=== PATIENT | male | born 1970 | race Caucasian/White ===

== ENCOUNTER → 2022-11-15 | Outpatient (REF) | payer OTHER ==
[2022-11-15 14:41] LABS: BASO % 0.6 % (0.0-1.0); EOS # 0.2 10^3/uL (0.0-0.5); EOS % 2.9 % (0.0-3.0); HEMATOCRIT 46.5 % (42.0-52.0); HEMOGLOBIN 15.3 g/dl (13.5-17.5); LYMPH # 1.9 10^3/uL (1.5-5.0); LYMPH % 36.5 % (24.0-44.0); MEAN CORPUSCULAR HEMOGLOBIN 29.7 pg (27.0-33.0); MEAN CORPUSCULAR HGB CONC 32.9 g/dl (32.0-36.5); MEAN CORPUSCULAR VOLUME 90.1 fl (80.0-96.0); MONO # 0.6 10^3/uL (0.0-0.8); MONO % 12.2 % (2.0-8.0); NEUTROPHILS # 2.4 10^3/uL (1.5-8.5); NEUTROPHILS % 47.4 % (36.0-66.0); PLATELET COUNT, AUTOMATED 264 10^3/uL (150-450); RED BLOOD COUNT 5.16 10^6/uL (4.30-6.10); WHITE BLOOD COUNT 5.1 10^3/uL (4.0-10.0)
[2022-11-15 15:07] LABS: TOTAL 25(OH) VITAMIN D 30.2 NG/ML (20.0-100.0)
[2022-11-15 15:08] LABS: THYROID STIMULATING HORMONE 1.324 uIU/ML (0.55-4.78)
[2022-11-15 15:09] LABS: ALBUMIN 4.2 G/DL (3.2-5.2); ALKALINE PHOSPHATASE 63 U/L (46-116); ALT/SGPT 66 U/L (7.0-40); AST/SGOT 35 U/L (<34); BILIRUBIN,TOTAL 0.6 MG/DL (0.3-1.2); BLOOD UREA NITROGEN 16 MG/DL (9-23); CALCIUM LEVEL 9.6 MG/DL (8.5-10.1); CARBON DIOXIDE LEVEL 25 MMOL/L (20-31); CHLORIDE LEVEL 102 MMOL/L (98-107); CHOLESTEROL LEVEL 260 MG/DL (<200); CREATININE FOR GFR 1.08 MG/DL (0.70-1.30); GLOMERULAR FILTRATION RATE > 60.0 (>56); GLUCOSE, FASTING 91 MG/DL (60-100); HDL CHOLESTEROL 78.6 MG/DL (>40); HEMOGLOBIN A1c 5.3 % (4.0-6.0); LDL CHOLESTEROL 158.6 MG/DL (<100); NON-HDL-C 181 MG/DL; POTASSIUM SERUM 4.8 MMOL/L (3.5-5.1); SODIUM LEVEL 138 MMOL/L (136-145); TRIGLYCERIDES LEVEL 114 MG/DL (<150)
[2022-11-15 15:10] LABS: FREE T4 1.22 NG/DL (0.89-1.76)
== END ==
LOC: M LAB REF 11:58
PROVIDERS: ATTEND Nurse Practitioner Family
DX: Z13.228 Encounter for screening for other metabolic disorders (principal)

== ENCOUNTER → 2022-12-14 | Outpatient (REF) | payer OTHER ==
[2022-12-14 18:24] LABS: ALBUMIN 4.5 G/DL (3.2-5.2); BILIRUBIN,DIRECT 0.1 MG/DL (<0.4); BILIRUBIN,TOTAL 0.5 MG/DL (0.3-1.2); TOTAL PROTEIN 7.3 G/DL (5.7-8.2)
== END ==
LOC: M LAB REF 16:32
PROVIDERS: ATTEND Nurse Practitioner Family
DX: R89.9 Unspecified abnormal finding in specimens from other organs, systems and tissues (principal); R35.1 Nocturia

== ENCOUNTER → 2023-02-25 | Outpatient (REF) | payer OTHER ==
[2023-02-25 20:33] LABS: ALBUMIN 4.3 G/DL (3.2-5.2); ALKALINE PHOSPHATASE 63 U/L (46-116); ALT/SGPT 138 U/L (7.0-40); AST/SGOT 48 U/L (<34); BILIRUBIN,DIRECT 0.3 MG/DL (<0.4); BILIRUBIN,TOTAL 0.8 MG/DL (0.3-1.2); TOTAL PROTEIN 6.9 G/DL (5.7-8.2)
[2023-02-25 20:35] LABS: HEPATITIS B SURFACE ANTIBODY NEGATIVE (POSITIVE)
[2023-02-25 20:36] LABS: FERRITIN 220.2 NG/ML (10.5-307.3)
[2023-02-25 20:47] LABS: HEPATITIS B SURFACE ANTIGEN NEGATIVE (NEGATIVE)
[2023-02-25 21:09] LABS: HEPATITIS B CORE ANTIBODY IGM NEGATIVE (NEGATIVE)
== END ==
LOC: M LAB REF 17:21
PROVIDERS: ATTEND Nurse Practitioner Family
DX: R74.01 Elevation of levels of liver transaminase levels (principal); R89.9 Unspecified abnormal finding in specimens from other organs, systems and tissues

== ENCOUNTER → 2023-04-01 | Outpatient (CLI) | payer OTHER | LOC: M RAD 08:06 | PROVIDERS: ATTEND Nurse Practitioner Family | DX: R74.01 Elevation of levels of liver transaminase levels (principal) ==

== ENCOUNTER 2023-04-26 09:13 | Day surgery (SDC) | payer OTHER ==
[~2023-04-26] VITALS: Ht 172.7 cm; Wt 82.2 kg
[~2023-04-26 09:13] MED LIST: CETI10CH PO; LOSA25TA13 PO; NS 1,000 ML IV ONE; ROSU10TA6 PO
[2023-04-26] MEDS ORDERED: fentaNYL 100 MCG/2 ML INJECTION As Ordered ONE (10:27)
[2023-04-26] MEDS ORDERED: LIDOCAINE 2% MDV 20ML VIAL As Ordered ONE (10:27)
[2023-04-26] MEDS ORDERED: propofoL 200 MG/20 ML VIAL As Ordered ONE (10:27)
[2023-04-26] MEDS ORDERED: SIMETHICONE 40MG/0.6ML DROPS 30ML As Ordered ONE (10:51)
[2023-04-26 11:15] VITALS: BP 124/65
== END 2023-04-26 11:35 | disposition home or self-care (01) ==
LOC: M OPP 09:13
PROVIDERS: ATTEND Surgery
DX: Z12.11 Encounter for screening for malignant neoplasm of colon (principal); D12.4 Benign neoplasm of descending colon; K64.8 Other hemorrhoids; I10 Essential (primary) hypertension; E78.5 Hyperlipidemia, unspecified; Z88.8 Allergy status to other drugs, medicaments and biological substances; Z79.899 Other long term (current) drug therapy
CPT/HCPCS: 45385; 88305; J3010

== ENCOUNTER → 2023-05-06 | Outpatient (REF) | payer OTHER ==
[~2023-05-06] MED LIST changes: -NS 1,000 ML IV ONE
[2023-05-06 18:14] LABS: ALBUMIN 4.3 G/DL (3.2-5.2); BILIRUBIN,DIRECT 0.2 MG/DL (<0.4); BILIRUBIN,TOTAL 0.5 MG/DL (0.3-1.2); PERCENT SATURATION 69.9 % (19.7-50.0); TOTAL PROTEIN 6.5 G/DL (5.7-8.2)
== END ==
LOC: M LAB REF 16:06
PROVIDERS: ATTEND Nurse Practitioner Family
DX: R74.01 Elevation of levels of liver transaminase levels (principal)

== ENCOUNTER → 2023-08-07 | Outpatient (CLI) | payer OTHER | LOC: M RAD 17:49 | PROVIDERS: ATTEND Physician Assistant | DX: N20.0 Calculus of kidney (principal) ==

== ENCOUNTER → 2023-08-08 | Outpatient (CLI) | payer OTHER | LOC: M RAD 13:59 | PROVIDERS: ATTEND Nurse Practitioner Family | DX: Z13.29 Encounter for screening for other suspected endocrine disorder (principal) ==

== ENCOUNTER → 2023-09-21 | Outpatient (CLI) | payer OTHER ==
[~2023-09-21] MED LIST changes: +VITMTA PO
[2023-09-21 10:02] LABS: APPEARANCE, URINE CLEAR (CLEAR); BACTERIA, URINE AUTO NEGATIVE (NEGATIVE); BILIRUBIN, URINE AUTO NEGATIVE (NEGATIVE); BLOOD, URINE BLOOD NEGATIVE (NEGATIVE); COLOR, URINE YELLOW (YELLOW); GLUCOSE, URINE (UA) AUTO NEGATIVE (NEGATIVE); HEMATOCRIT 45.1 % (42.0-52.0); HEMOGLOBIN 15.2 g/dl (13.5-17.5); KETONE, URINE AUTO NEGATIVE (NEGATIVE); LEUKOCYTE ESTERASE, URINE AUTO NEGATIVE (NEGATIVE); MEAN CORPUSCULAR HEMOGLOBIN 29.2 pg (27.0-33.0); MEAN CORPUSCULAR HGB CONC 33.7 g/dl (32.0-36.5); MEAN CORPUSCULAR VOLUME 86.6 fl (80.0-96.0); MUCUS, URINE SMALL (NEGATIVE); NITRITE, URINE AUTO NEGATIVE (NEGATIVE); PLATELET COUNT, AUTOMATED 242 10^3/uL (150-450); PROTEIN, URINE AUTO NEGATIVE (NEGATIVE); RBC, URINE AUTO 0 /HPF (0-3); RED BLOOD COUNT 5.21 10^6/uL (4.30-6.10); SQUAMOUS EPITHELIAL CELL UR AU 0 /HPF (0-6); UROBILINOGEN, URINE AUTO 0.2 mg/dL (0.0-2.0); WBC, URINE AUTO 3 /HPF (0-3); WHITE BLOOD COUNT 6.5 10^3/uL (4.0-10.0)
[2023-09-21 10:25] LABS: BLOOD UREA NITROGEN 15 MG/DL (9-23); CALCIUM LEVEL 9.4 MG/DL (8.5-10.1); CARBON DIOXIDE LEVEL 31 MMOL/L (20-31); CHLORIDE LEVEL 104 MMOL/L (98-107); GLOMERULAR FILTRATION RATE > 60.0 (>56); GLUCOSE, FASTING 96 MG/DL (60-100); POTASSIUM SERUM 4.2 MMOL/L (3.5-5.1); SODIUM LEVEL 142 MMOL/L (136-145)
== END ==
LOC: M RAD 08:45
PROVIDERS: ATTEND Physician Assistant
DX: Z01.818 Encounter for other preprocedural examination (principal)

== ENCOUNTER 2023-09-26 08:51 | Day surgery (SDC) | payer OTHER ==
[~2023-09-26] VITALS: Ht 170.2 cm; Wt 84.9 kg
[~2023-09-26 08:51] MED LIST changes: +LIDOCAINE 2% 100MG/5ML SDV (FOR ANES.) As Ordered ONE; +LR 1,000 ML IV SCH; +ONDANSETRON 4MG 2ML VIAL As Ordered ONE; +ceFAZolin SOD 2 GM in IV 1 EA IV ONE; +propofoL 200 MG/20 ML VIAL As Ordered ONE
[2023-09-26] MEDS ORDERED: fentaNYL 100 MCG/2 ML INJECTION As Ordered ONE (09:50)
[2023-09-26] MEDS ORDERED: OXYC1TAB23 PO (10:19)
[2023-09-26] MEDS ORDERED: FLOM0.4C39 PO (10:19)
[2023-09-26] MEDS ORDERED: ACETAMINOPHEN 1000MG 100ML IV BAG As Ordered ONE (10:31)
[2023-09-26 11:25] VITALS: BP 125/72; TEMP 97.7; O2SAT 98
== END 2023-09-26 11:41 | disposition home or self-care (01) ==
LOC: M SDC 08:51
PROVIDERS: ATTEND Urology
DX: N20.0 Calculus of kidney (principal); I10 Essential (primary) hypertension; E78.00 Pure hypercholesterolemia, unspecified; K21.9 Gastro-esophageal reflux disease without esophagitis; Z87.442 Personal history of urinary calculi; J30.89 Other allergic rhinitis; Z79.899 Other long term (current) drug therapy
CPT/HCPCS: 50590; 74018; J0131; J0690; J1100; J2405; J3010

== ENCOUNTER 2023-10-05 12:35 | Inpatient (IN) | payer OTHER ==
[~2023-10-05] VITALS: Ht 170.2 cm; Wt 81.0 kg
[~2023-10-05 12:35] MED LIST changes: +FLOM0.4C39 PO; -LIDOCAINE 2% 100MG/5ML SDV (FOR ANES.) As Ordered ONE; -LR 1,000 ML IV SCH; -ONDANSETRON 4MG 2ML VIAL As Ordered ONE; +OXYC1TAB23 PO; -ceFAZolin SOD 2 GM in IV 1 EA IV ONE; -propofoL 200 MG/20 ML VIAL As Ordered ONE
[2023-10-05] MEDS ORDERED: NS 1,000 ML IV ONE (13:30)
[2023-10-05 14:07] LABS: BASO # 0.1 10^3/uL (0.0-0.2); EOS # 0.1 10^3/uL (0.0-0.5); HEMATOCRIT 45.6 % (42.0-52.0); HEMOGLOBIN 15.4 g/dl (13.5-17.5); LYMPH # 1.1 10^3/uL (1.5-5.0); LYMPH % 22.9 % (24.0-44.0); MEAN CORPUSCULAR HEMOGLOBIN 29.3 pg (27.0-33.0); MEAN CORPUSCULAR HGB CONC 33.8 g/dl (32.0-36.5); MEAN CORPUSCULAR VOLUME 86.9 fl (80.0-96.0); MONO # 0.6 10^3/uL (0.0-0.8); NEUTROPHILS % 61.9 % (36.0-66.0); PLATELET COUNT, AUTOMATED 310 10^3/uL (150-450); RED BLOOD COUNT 5.25 10^6/uL (4.30-6.10); WHITE BLOOD COUNT 4.9 10^3/uL (4.0-10.0)
[2023-10-05 14:19] LABS: INR 0.91; PARTIAL THROMBOPLASTIN TIME 23.8 SECONDS (24.8-34.2)
[2023-10-05 14:53] LABS: MONO SCRN NEGATIVE (NEGATIVE)
[2023-10-05 14:54] LABS: LIPASE 236 U/L (12-53)
[2023-10-05 14:56] LABS: ALBUMIN 4.4 G/DL (3.2-5.2); ALKALINE PHOSPHATASE 457 U/L (46-116); ALT/SGPT 884 U/L (7.0-40); AST/SGOT 464 U/L (<34); BILIRUBIN,DIRECT 7.8 MG/DL (<0.4)
[2023-10-05 15:19] LABS: HEPATITIS B CORE ANTIBODY IGM NEGATIVE (NEGATIVE); HEPATITIS C VIRUS ABY INDEX 0.05 INDEX (<0.8)
[2023-10-05 15:20] LABS: BILIRUBIN,TOTAL 10.9 MG/DL (0.3-1.2)
[2023-10-05 15:54] LABS: BLOOD UREA NITROGEN 14 MG/DL (9-23); CALCIUM LEVEL 10.4 MG/DL (8.5-10.1); CARBON DIOXIDE LEVEL 25 MMOL/L (20-31); CHLORIDE LEVEL 102 MMOL/L (98-107); CREATININE FOR GFR 1.09 MG/DL (0.70-1.30); GLOMERULAR FILTRATION RATE > 60.0 (>56); GLUCOSE, FASTING 103 MG/DL (60-100); POTASSIUM SERUM 4.2 MMOL/L (3.5-5.1); SODIUM LEVEL 140 MMOL/L (136-145)
[2023-10-05] MEDS ORDERED: PROHANCE 279.3MG/ML 5ML VIAL As Ordered ONE (17:21)
[2023-10-05] MEDS ORDERED: PROHANCE 279.3MG/ML 15ML VIAL As Ordered ONE (17:21)
[2023-10-05] MEDS ORDERED: HYDR-643 PO (19:18)
[2023-10-05] MEDS ORDERED: TAMS1CAP17 PO (19:18)
[2023-10-05] MEDS ORDERED: ASPI81TA26 PO (19:18)
[2023-10-05] MEDS ORDERED: HOME MED LIST COMPLETE! XX SCH (19:20)
[2023-10-05 23:45] VITALS: BP 138/82; TEMP 98.1; O2SAT 98
[2023-10-06] VITALS (8 sets, daily range): BP systolic 109–138; BP diastolic 73–80; TEMP 97.9–98.2; O2SAT 96–100
[2023-10-06] MEDS: LR 1,000 ML IV SCH ×4 (06:30→21:07)
[2023-10-06 07:17] LABS: HEMATOCRIT 41.4 % (42.0-52.0); MEAN CORPUSCULAR HEMOGLOBIN 29.5 pg (27.0-33.0); MEAN CORPUSCULAR HGB CONC 33.8 g/dl (32.0-36.5); MEAN CORPUSCULAR VOLUME 87.3 fl (80.0-96.0); PLATELET COUNT, AUTOMATED 290 10^3/uL (150-450); RED BLOOD COUNT 4.74 10^6/uL (4.30-6.10); WHITE BLOOD COUNT 5.7 10^3/uL (4.0-10.0)
[2023-10-06 07:50] LABS: ALBUMIN 3.5 G/DL (3.2-5.2); ALKALINE PHOSPHATASE 378 U/L (46-116); ALT/SGPT 826 U/L (7.0-40); AST/SGOT 452 U/L (<34); BILIRUBIN,TOTAL 10.2 MG/DL (0.3-1.2); BLOOD UREA NITROGEN 14 MG/DL (9-23); CALCIUM LEVEL 9.5 MG/DL (8.5-10.1); CARBON DIOXIDE LEVEL 25 MMOL/L (20-31); CHLORIDE LEVEL 102 MMOL/L (98-107); CREATININE FOR GFR 1.03 MG/DL (0.70-1.30); GLOMERULAR FILTRATION RATE > 60.0 (>56); GLUCOSE, FASTING 78 MG/DL (60-100); MAGNESIUM LEVEL 2.2 MG/DL (1.8-2.4); POTASSIUM SERUM 4.6 MMOL/L (3.5-5.1); SODIUM LEVEL 138 MMOL/L (136-145); TOTAL PROTEIN 6.6 G/DL (5.7-8.2)
[2023-10-06] MEDS ORDERED: INFLUENZA QUADRIVALENT PF VACCINE 0.5ML SYRINGE IM.IMMUN ONE (10:00)
[2023-10-06] MEDS ORDERED: ISOVUE-300 61% 100ML VIAL As Ordered ONE (16:18)
[2023-10-06] MEDS ORDERED: fentaNYL 100 MCG/2 ML INJECTION As Ordered ONE (17:13)
[2023-10-06] MEDS ORDERED: propofoL 200 MG/20 ML VIAL As Ordered ONE ×2 (17:13→17:50)
[2023-10-06] MEDS ORDERED: ONDANSETRON 4MG 2ML VIAL As Ordered ONE (17:13)
[2023-10-06] MEDS ORDERED: ROCURONIUM BROMIDE 50MG/5ML VIAL As Ordered ONE (17:13)
[2023-10-06] MEDS ORDERED: MIDAZOLAM INJ 2MG/2ML VIAL As Ordered ONE (17:13)
[2023-10-06] MEDS ORDERED: LIDOCAINE 2% 100MG/5ML SDV (FOR ANES.) As Ordered ONE (17:13)
[2023-10-06] MEDS ORDERED: GLUCAGON INJ 1MG VIAL As Ordered ONE (17:13)
[2023-10-06] MEDS ORDERED: SUGAMMADEX SODIUM 500 MG/5 ML VIAL (BRIDION) As Ordered ONE (18:07)
[2023-10-06] MEDS ORDERED: oxyCODONE 5MG TAB PO PRN (18:15)
[2023-10-06] MEDS ORDERED: ONDANSETRON 4MG 2ML VIAL IV PRN (18:15)
[2023-10-06] MEDS ORDERED: fentaNYL 100 MCG/2 ML INJECTION IV PRN (18:15)
[2023-10-06] MEDS ORDERED: PIPERACILLIN/TAZOBACTAM SOD 3.375 GM in D5W MINI-BAG PLUS 50 ML IV SCH (20:00)
[2023-10-07] MEDS ORDERED: LOSARTAN 25 MG TAB PO SCH (09:00)
[2023-10-07] MEDS ORDERED: TAMSULOSIN 0.4 MG CAP PO SCH (09:00)
[2023-10-07] MEDS ORDERED: ASPIRIN 81MG ENTERIC TABLET PO SCH (09:00)
== END 2023-10-07 00:53 | disposition short-term general hospital (02) ==
LOC: M ED 12:35 → M ED INP 22:24 → M MS5PR 23:38
PROVIDERS: ADMIT Internal Medicine; ATTEND Internal Medicine
PROC: 0F7D8ZZ Dilation of Pancreatic Duct, Via Natural or Artificial Opening Endoscopic (ICD-10-PCS; principal; 2023-10-06 16:42)
DX: R17 Unspecified jaundice (principal); K83.1 Obstruction of bile duct; K86.2 Cyst of pancreas; K86.89 Other specified diseases of pancreas; K83.8 Other specified diseases of biliary tract; I10 Essential (primary) hypertension; N20.0 Calculus of kidney; F41.9 Anxiety disorder, unspecified; F32.A Depression, unspecified; R74.01 Elevation of levels of liver transaminase levels; K82.4 Cholesterolosis of gallbladder; R93.2 Abnormal findings on diagnostic imaging of liver and biliary tract; Z79.82 Long term (current) use of aspirin; Z79.899 Other long term (current) drug therapy

== ENCOUNTER → 2023-10-15 | Outpatient (REF) | payer OTHER ==
[~2023-10-15] MED LIST changes: +ASPI81TA26 PO; +HYDR-643 PO; +TAMS1CAP17 PO
== END ==
LOC: M SMT 17:05
PROVIDERS: ATTEND Physician Assistant
DX: Z48.816 Encounter for surgical aftercare following surgery on the genitourinary system (principal)

== ENCOUNTER → 2023-10-16 | Outpatient (CLI) | payer OTHER | LOC: M PLAIMG 13:32 | PROVIDERS: ATTEND Surgery Surgical Oncology | DX: K83.1 Obstruction of bile duct (principal) ==

== ENCOUNTER → 2023-10-16 | Outpatient (CLI) | payer OTHER | LOC: M PLAIMG 13:37 | PROVIDERS: ATTEND Otolaryngology | DX: D44.0 Neoplasm of uncertain behavior of thyroid gland (principal) ==

== ENCOUNTER → 2023-10-18 | Outpatient (CLI) | payer OTHER ==
[2023-10-18 10:48] LABS: FREE T4 1.15 NG/DL (0.89-1.76); THYROID STIMULATING HORMONE 0.886 uIU/ML (0.55-4.78)
== END ==
LOC: M LAB 09:42
PROVIDERS: ATTEND Otolaryngology
DX: D44.0 Neoplasm of uncertain behavior of thyroid gland (principal)

== ENCOUNTER → 2023-10-21 | Outpatient (CLI) | payer OTHER ==
[2023-10-21 13:59] LABS: BASO # 0.1 10^3/uL (0.0-0.2); BASO % 1.3 % (0.0-1.0); EOS # 0.1 10^3/uL (0.0-0.5); EOS % 1.3 % (0.0-3.0); HEMATOCRIT 44.6 % (42.0-52.0); LYMPH # 1.4 10^3/uL (1.5-5.0); LYMPH % 25.8 % (24.0-44.0); MEAN CORPUSCULAR HEMOGLOBIN 29.4 pg (27.0-33.0); MEAN CORPUSCULAR HGB CONC 33.6 g/dl (32.0-36.5); MEAN CORPUSCULAR VOLUME 87.5 fl (80.0-96.0); MONO # 0.5 10^3/uL (0.0-0.8); MONO % 9.6 % (2.0-8.0); NEUTROPHILS # 3.4 10^3/uL (1.5-8.5); NEUTROPHILS % 61.8 % (36.0-66.0); PLATELET COUNT, AUTOMATED 352 10^3/uL (150-450); WHITE BLOOD COUNT 5.5 10^3/uL (4.0-10.0)
[2023-10-21 14:10] LABS: INR 1.02; PROTHROMBIN TIME 13.1 SECONDS (12.5-14.5)
[2023-10-21 14:11] LABS: PARTIAL THROMBOPLASTIN TIME 21.3 SECONDS (24.8-34.2)
[2023-10-21 14:17] LABS: HEMOGLOBIN A1c 5.2 % (4.0-6.0)
[2023-10-21 14:23] LABS: ALKALINE PHOSPHATASE 162 U/L (46-116); ALT/SGPT 177 U/L (7.0-40); AST/SGOT 46 U/L (<34); BILIRUBIN,TOTAL 1.9 MG/DL (0.3-1.2); BLOOD UREA NITROGEN 14 MG/DL (9-23); CALCIUM LEVEL 9.7 MG/DL (8.5-10.1); CARBON DIOXIDE LEVEL 29 MMOL/L (20-31); CHLORIDE LEVEL 102 MMOL/L (98-107); CREATININE FOR GFR 1.06 MG/DL (0.70-1.30); GLOMERULAR FILTRATION RATE > 60.0 (>56); GLUCOSE, FASTING 93 MG/DL (60-100); POTASSIUM SERUM 4.7 MMOL/L (3.5-5.1); SODIUM LEVEL 141 MMOL/L (136-145); TOTAL PROTEIN 7.3 G/DL (5.7-8.2)
[2023-10-21 14:27] LABS: CARCINOEMBRYONIC ANTIGEN < 2.0 NG/ML (<2.5)
[2023-10-21 14:43] LABS: CA19-9 TUMOR MARKER,CARBOHYDRA 21.9 U/ML (<35.0)
== END ==
LOC: M LAB 13:13
PROVIDERS: ATTEND Surgery Surgical Oncology
DX: K83.1 Obstruction of bile duct (principal)

== ENCOUNTER → 2023-10-21 | Outpatient (CLI) | payer OTHER | LOC: M PLAIMG 11:46 | PROVIDERS: ATTEND Surgery Surgical Oncology | DX: K83.1 Obstruction of bile duct (principal) ==

== ENCOUNTER → 2023-11-05 | Outpatient (CLI) | payer OTHER ==
[~2023-11-05] MED LIST changes: +CYCL-707 PO; +ECOT81TA5 PO; +GNPTAB35 PO; +LEXA1TAB PO; +LIDOCAINE 1% MDV 20ML VIAL As Ordered ONE; +LORA1TAB23 PO
[2023-11-05 13:51] VITALS: TEMP 97.9
[2023-11-05 15:04] VITALS: BP 154/91; O2SAT 95
== END ==
LOC: M IRPRO 13:34
PROVIDERS: ATTEND Otolaryngology
DX: D44.0 Neoplasm of uncertain behavior of thyroid gland (principal)

== ENCOUNTER → 2023-12-09 | Outpatient (CLI) | payer OTHER ==
[~2023-12-09] MED LIST changes: -LIDOCAINE 1% MDV 20ML VIAL As Ordered ONE; +LOMO2.5T PO; +ONDA-84 PO; +PROC10TA5 PO
== END ==
LOC: M ONCR 09:03
PROVIDERS: ATTEND General Practice
DX: C78.7 Secondary malignant neoplasm of liver and intrahepatic bile duct (principal); C25.0 Malignant neoplasm of head of pancreas; Z71.2 Person consulting for explanation of examination or test findings; Z79.82 Long term (current) use of aspirin; Z79.899 Other long term (current) drug therapy; Z92.21 Personal history of antineoplastic chemotherapy

== ENCOUNTER 2023-12-17 10:31 | Outpatient (RCR) | payer OTHER ==
[2023-12-24] MEDS ORDERED: THERTAB52 PO (09:50)
[2023-12-24] MEDS ORDERED: ONDA-84 PO (09:50)
[2023-12-24] MEDS ORDERED: PROC10TA5 PO (09:50)
[2023-12-24] MEDS ORDERED: TRAZ-252 PO (10:10)
== END 2023-12-25 ==
LOC: M ONCR 10:31
PROVIDERS: ATTEND General Practice
DX: Z51.0 Encounter for antineoplastic radiation therapy (principal); C78.7 Secondary malignant neoplasm of liver and intrahepatic bile duct; C25.9 Malignant neoplasm of pancreas, unspecified

== ENCOUNTER 2024-01-10 10:41 | Outpatient (RCR) | payer OTHER ==
[~2024-01-10 10:41] MED LIST changes: +THERTAB52 PO; +TRAZ-252 PO
== END 2024-01-23 ==
LOC: M ONCR 10:41
PROVIDERS: ATTEND General Practice
DX: Z51.0 Encounter for antineoplastic radiation therapy (principal); C25.0 Malignant neoplasm of head of pancreas

== ENCOUNTER → 2024-02-17 | Outpatient (CLI) | payer OTHER | LOC: M PLARAD 08:59 | PROVIDERS: ATTEND Specialist | DX: C25.8 Malignant neoplasm of overlapping sites of pancreas (principal) | CPT/HCPCS: 78815; A9552 ==

== ENCOUNTER → 2024-04-08 | Outpatient (CLI) | payer OTHER ==
[~2024-04-08] MED LIST changes: +ANAS0.12 PO; +GASTROGRAFIN SOLUTION 30ML ONE; +ISOVUE-370 76% 100ML VIAL ONE; -ROSU10TA6 PO; +ROSU10TA61 PO
== END ==
LOC: M PLAIMG 11:24
PROVIDERS: ATTEND General Practice
DX: C25.0 Malignant neoplasm of head of pancreas (principal); C78.7 Secondary malignant neoplasm of liver and intrahepatic bile duct

== ENCOUNTER → 2024-04-27 | Outpatient (CLI) | payer OTHER ==
[~2024-04-27] MED LIST changes: -GASTROGRAFIN SOLUTION 30ML ONE; -ISOVUE-370 76% 100ML VIAL ONE
== END ==
LOC: M RAD 11:01
PROVIDERS: ATTEND Otolaryngology
DX: E04.2 Nontoxic multinodular goiter (principal)

== ENCOUNTER → 2024-05-15 | Outpatient (CLI) | payer OTHER ==
[~2024-05-15] MED LIST changes: +POTA-141 PO
== END ==
LOC: M ONCR 11:08
PROVIDERS: ATTEND General Practice
DX: C78.7 Secondary malignant neoplasm of liver and intrahepatic bile duct (principal); C25.0 Malignant neoplasm of head of pancreas; Z87.442 Personal history of urinary calculi; Z92.21 Personal history of antineoplastic chemotherapy; Z71.2 Person consulting for explanation of examination or test findings; J30.89 Other allergic rhinitis; Z79.899 Other long term (current) drug therapy; Z79.82 Long term (current) use of aspirin

== ENCOUNTER → 2024-07-29 | Outpatient (CLI) | payer OTHER ==
[~2024-07-29] MED LIST changes: +GASTROGRAFIN SOLUTION 30ML As Ordered ONE; +ISOVUE-370 76% 100ML VIAL As Ordered ONE; +POTA-150 PO
== END ==
LOC: M RAD 15:16
PROVIDERS: ATTEND Specialist
DX: C25.9 Malignant neoplasm of pancreas, unspecified (principal)
CPT/HCPCS: 71260; 74177; Q9963; Q9967

== ENCOUNTER → 2024-08-19 | Outpatient (CLI) | payer OTHER ==
[~2024-08-19] MED LIST changes: -GASTROGRAFIN SOLUTION 30ML As Ordered ONE; -ISOVUE-370 76% 100ML VIAL As Ordered ONE
== END ==
LOC: M ONCR 11:02
PROVIDERS: ATTEND General Practice
DX: C78.7 Secondary malignant neoplasm of liver and intrahepatic bile duct (principal); C25.0 Malignant neoplasm of head of pancreas; Z71.2 Person consulting for explanation of examination or test findings; Z92.3 Personal history of irradiation; Z92.21 Personal history of antineoplastic chemotherapy; J30.89 Other allergic rhinitis; Z79.82 Long term (current) use of aspirin; Z79.899 Other long term (current) drug therapy

== ENCOUNTER → 2024-10-28 | Outpatient (CLI) | payer OTHER | LOC: M RAD 11:04 | PROVIDERS: ATTEND Otolaryngology | DX: E04.1 Nontoxic single thyroid nodule (principal) ==

== ENCOUNTER → 2025-02-16 | Outpatient (CLI) | payer OTHER ==
[~2025-02-16] MED LIST changes: +MUPI2OI
== END ==
LOC: M ONCR 11:00
PROVIDERS: ATTEND General Practice
DX: C78.7 Secondary malignant neoplasm of liver and intrahepatic bile duct (principal); C25.0 Malignant neoplasm of head of pancreas; R14.0 Abdominal distension (gaseous); Z92.3 Personal history of irradiation; Z92.21 Personal history of antineoplastic chemotherapy; J30.89 Other allergic rhinitis; Z79.82 Long term (current) use of aspirin; Z79.899 Other long term (current) drug therapy

== ENCOUNTER → 2025-03-10 | Outpatient (CLI) | payer OTHER ==
[~2025-03-10] MED LIST changes: +ANAS0.12 SL; +DICY-61 PO; +ISOVUE-370 76% 100ML VIAL As Ordered ONE
== END ==
LOC: M RAD 07:38
PROVIDERS: ATTEND Specialist
DX: C25.9 Malignant neoplasm of pancreas, unspecified (principal)
CPT/HCPCS: 74177; J1642; Q9967

== ENCOUNTER 2025-03-15 18:43 | Emergency (ER) | payer OTHER ==
[~2025-03-15] VITALS: Ht 172.7 cm; Wt 84.5 kg
[~2025-03-15 18:43] MED LIST changes: -ISOVUE-370 76% 100ML VIAL As Ordered ONE
[2025-03-15 19:39] LABS: BASO % 0.7 % (0.0-1.0); EOS # 0.2 10^3/uL (0.0-0.5); EOS % 2.8 % (0.0-3.0); HEMATOCRIT 37.9 % (42.0-52.0); HEMOGLOBIN 12.8 g/dl (13.5-17.5); LYMPH # 1.6 10^3/uL (1.5-5.0); LYMPH % 30.2 % (24.0-44.0); MEAN CORPUSCULAR HEMOGLOBIN 30.3 pg (27.0-33.0); MEAN CORPUSCULAR HGB CONC 33.8 g/dl (32.0-36.5); MEAN CORPUSCULAR VOLUME 89.8 fl (80.0-96.0); MONO # 0.7 10^3/uL (0.0-0.8); MONO % 13.7 % (2.0-8.0); NEUTROPHILS # 2.8 10^3/uL (1.5-8.5); NEUTROPHILS % 52.2 % (36.0-66.0); PLATELET COUNT, AUTOMATED 274 10^3/uL (150-450); RED BLOOD COUNT 4.22 10^6/uL (4.30-6.10); WHITE BLOOD COUNT 5.4 10^3/uL (4.0-10.0)
[2025-03-15 19:58] LABS: LIPASE 52 U/L (12-53)
[2025-03-15 19:59] LABS: INR 0.86
[2025-03-15 20:02] LABS: ALBUMIN 3.5 G/DL (3.2-5.2); ALKALINE PHOSPHATASE 255 U/L (40-129); ALT/SGPT 111 U/L (7.0-40); AST/SGOT 82 U/L (<34); BILIRUBIN,DIRECT 4.5 MG/DL (<0.4); BILIRUBIN,TOTAL 6.5 MG/DL (0.3-1.2); BLOOD UREA NITROGEN 15 MG/DL (9-23); CALCIUM LEVEL 9.7 MG/DL (8.5-10.1); CARBON DIOXIDE LEVEL 26 MMOL/L (20-31); CHLORIDE LEVEL 101 MMOL/L (98-107); CREATININE FOR GFR 0.91 MG/DL (0.70-1.30); GLOMERULAR FILTRATION RATE > 90.0 (>56); GLUCOSE, FASTING 85 MG/DL (60-100); POTASSIUM SERUM 3.8 MMOL/L (3.5-5.1); SODIUM LEVEL 136 MMOL/L (136-145)
[2025-03-15 20:45] LABS: KETONE, URINE AUTO RFX NEGATIVE (NEGATIVE); LEUKOCYTE ESTERASE UR AUTO RFX NEGATIVE (NEGATIVE); NITRITE, URINE AUTO RFX NEGATIVE (NEGATIVE); RBC, URINE AUTO RFX 0 /HPF (0-3); SQUAM EPITHELIAL CELL UR AURFX 0 /HPF (0-6); WBC, URINE AUTO RFX 0 /HPF (0-3)
[2025-03-15 21:11] VITALS: BP 124/66; TEMP 98.3; O2SAT 99
[2025-03-16] MEDS ORDERED: GNPTAB35 PO (17:12)
== END 2025-03-15 21:19 | disposition home or self-care (01) ==
LOC: M ED 18:43
DX: K80.20 Calculus of gallbladder without cholecystitis without obstruction (principal); R10.9 Unspecified abdominal pain; I10 Essential (primary) hypertension; Z91.09 Other allergy status, other than to drugs and biological substances; Z79.1 Long term (current) use of non-steroidal anti-inflammatories (NSAID); Z79.899 Other long term (current) drug therapy

== ENCOUNTER 2025-03-15 22:03 | Emergency (ER) | payer OTHER ==
[~2025-03-15 22:03] MED LIST changes: -FLOM0.4C39 PO; +TAMS-18 PO
[2025-03-15 22:05] VITALS: BP 153/91; TEMP 97.8; O2SAT 98
[2025-03-16] MEDS ORDERED: GNPTAB35 PO (17:12)
[2025-03-25] MEDS ORDERED: OMEP-173 (14:37)
== END 2025-03-15 22:22 | disposition left against medical advice (07) ==
LOC: M ED 22:03
DX: Z53.21 Procedure and treatment not carried out due to patient leaving prior to being seen by health care provider (principal)

== ENCOUNTER 2025-03-16 13:54 | Emergency (ER) | payer OTHER ==
[~2025-03-16] VITALS: Ht 170.2 cm; Wt 83.3 kg
[2025-03-16 15:31] LABS: BASO % 0.6 % (0.0-1.0); EOS # 0.1 10^3/uL (0.0-0.5); EOS % 2.2 % (0.0-3.0); HEMATOCRIT 37.9 % (42.0-52.0); HEMOGLOBIN 12.7 g/dl (13.5-17.5); LYMPH # 1.3 10^3/uL (1.5-5.0); LYMPH % 24.8 % (24.0-44.0); MEAN CORPUSCULAR HEMOGLOBIN 30.3 pg (27.0-33.0); MEAN CORPUSCULAR HGB CONC 33.5 g/dl (32.0-36.5); MEAN CORPUSCULAR VOLUME 90.5 fl (80.0-96.0); MONO # 0.6 10^3/uL (0.0-0.8); MONO % 12.6 % (2.0-8.0); NEUTROPHILS % 59.6 % (36.0-66.0); PLATELET COUNT, AUTOMATED 291 10^3/uL (150-450); RED BLOOD COUNT 4.19 10^6/uL (4.30-6.10); WHITE BLOOD COUNT 5.1 10^3/uL (4.0-10.0)
[2025-03-16 15:43] LABS: INR 0.86
[2025-03-16 16:01] LABS: ALBUMIN 3.4 G/DL (3.2-5.2); ALKALINE PHOSPHATASE 253 U/L (40-129); ALT/SGPT 125 U/L (7.0-40); AST/SGOT 106 U/L (<34); BILIRUBIN,TOTAL 6.1 MG/DL (0.3-1.2); BLOOD UREA NITROGEN 17 MG/DL (9-23); CALCIUM LEVEL 9.3 MG/DL (8.5-10.1); CARBON DIOXIDE LEVEL 28 MMOL/L (20-31); CHLORIDE LEVEL 100 MMOL/L (98-107); CREATININE FOR GFR 0.94 MG/DL (0.70-1.30); GLOMERULAR FILTRATION RATE > 90.0 (>56); GLUCOSE, FASTING 93 MG/DL (60-100); POTASSIUM SERUM 4.5 MMOL/L (3.5-5.1); SODIUM LEVEL 136 MMOL/L (136-145); TOTAL PROTEIN 6.8 G/DL (5.7-8.2)
[2025-03-16] MEDS ORDERED: GNPTAB35 PO (17:12)
[2025-03-16 18:10] VITALS: BP 120/83; TEMP 97.3; O2SAT 99
== END 2025-03-16 18:14 | disposition home or self-care (01) ==
LOC: M ED 13:54
DX: C25.9 Malignant neoplasm of pancreas, unspecified (principal); Z91.09 Other allergy status, other than to drugs and biological substances; Z79.1 Long term (current) use of non-steroidal anti-inflammatories (NSAID); Z79.899 Other long term (current) drug therapy; Z79.810 Long term (current) use of selective estrogen receptor modulators (SERMs)

== ENCOUNTER → 2025-03-31 | Outpatient (REF) | payer OTHER ==
[~2025-03-31] MED LIST changes: +OMEP-173
[2025-03-31 12:25] LABS: BASO # 0.1 10^3/uL (0.0-0.2); EOS # 0.1 10^3/uL (0.0-0.5); EOS % 2.1 % (0.0-3.0); HEMATOCRIT 41.6 % (42.0-52.0); HEMOGLOBIN 14.1 g/dl (13.5-17.5); LYMPH # 1.8 10^3/uL (1.5-5.0); LYMPH % 31.6 % (24.0-44.0); MEAN CORPUSCULAR HEMOGLOBIN 29.6 pg (27.0-33.0); MEAN CORPUSCULAR HGB CONC 33.9 g/dl (32.0-36.5); MEAN CORPUSCULAR VOLUME 87.4 fl (80.0-96.0); MONO % 16.8 % (2.0-8.0); NEUTROPHILS # 2.8 10^3/uL (1.5-8.5); NEUTROPHILS % 48.3 % (36.0-66.0); PLATELET COUNT, AUTOMATED 253 10^3/uL (150-450); RED BLOOD COUNT 4.76 10^6/uL (4.30-6.10); WHITE BLOOD COUNT 5.8 10^3/uL (4.0-10.0)
[2025-03-31 15:13] LABS: ALBUMIN 3.5 G/DL (3.2-5.2); BILIRUBIN,TOTAL 2.2 MG/DL (0.3-1.2); CALCIUM LEVEL 9.6 MG/DL (8.5-10.1); CREATININE FOR GFR 1.02 MG/DL (0.70-1.30); GLOMERULAR FILTRATION RATE 86.3 (>56); POTASSIUM SERUM 4.3 MMOL/L (3.5-5.1); TOTAL PROTEIN 7.1 G/DL (5.7-8.2)
== END ==
LOC: M LAB REF 12:19
PROVIDERS: ATTEND Internal Medicine Medical Oncology
DX: C25.9 Malignant neoplasm of pancreas, unspecified (principal)

== ENCOUNTER → 2025-04-14 | Outpatient (REF) | payer OTHER | LOC: M LAB REF 07:57 | PROVIDERS: ATTEND Internal Medicine Medical Oncology | DX: Z53.9 Procedure and treatment not carried out, unspecified reason (principal) ==

== ENCOUNTER → 2025-08-19 | Outpatient (CLI) | payer OTHER ==
[~2025-08-19] VITALS: Ht 172.7 cm; Wt 90.8 kg
[2025-08-19 10:15] VITALS: BP 122/73; TEMP 98.2; O2SAT 98
== END ==
LOC: M ONCR 10:04
PROVIDERS: ATTEND General Practice
DX: C78.7 Secondary malignant neoplasm of liver and intrahepatic bile duct (principal); C25.0 Malignant neoplasm of head of pancreas; Z92.3 Personal history of irradiation; Z92.21 Personal history of antineoplastic chemotherapy; Z79.82 Long term (current) use of aspirin; Z79.899 Other long term (current) drug therapy

== ENCOUNTER → 2025-11-09 | Outpatient (CLI) | payer OTHER ==
[~2025-11-09] MED LIST changes: -ROSU10TA61 PO; +ROSU10TA90 PO
== END ==
LOC: M RAD 14:59
PROVIDERS: ATTEND Otolaryngology
DX: E04.1 Nontoxic single thyroid nodule (principal)